=== PATIENT | female | born 1965 | race Caucasian/White ===

== ENCOUNTER 2016-07-01 06:40 | Day surgery (SDC) | payer BC ==
[~2016-07-01 06:40] MED LIST: ACETAMINOPHEN 500 MG TABLET PO PRN; HYDROmorphone HCL 2 MG/ML VIAL IV PRN; MAG HYDROX/ALUMINUM HYD/SIMETH 30 ML UDC PO PRN; MAGNESIUM HYDROXIDE 30 ML UDC PO PRN; ONDANSETRON HCL/PF 2 MG/ML VIAL IV PRN; PROMETHAZINE HCL 25 MG in DEXTROSE 5 % IN WATER 50 ML IV PRN; RINGERS SOLUTION,LACTATED 1,000 ML IV PRN; ZOLPIDEM TARTRATE 5 MG TABLET PO PRN; ceFAZolin SODIUM 1 GM VIAL IV PRN; diphenhydrAMINE HCL 50 MG/ML VIAL IV PRN; oxyCODONE HCL/ACETAMINOPHEN 1 TAB TABLET PO PRN
[2016-07-01] MEDS ORDERED: RINGERS SOLUTION,LACTATED 1,000 ML IV ONE ×2 (07:17→08:45)
--- NOTE | 2016-07-01 09:50 | OR ---
Operative Report - Dictated Report Narrative: Date: 07/01/2016 Physician: Mukul Fitzgerald M.D. Plant Specialist: Casimiro Blake PA-C Preoperative diagnosis: Left Shoulder rotator cuff tear, biceps tendinopathy Postoperative diagnosis: Left Shoulder full-thickness supraspinatus rotator cuff tear, biceps tendinopathy, type I labral tear Procedure: Left shoulder arthroscopy with mini open rotator cuff repair, biceps tenodesis, labral debridement Anesthesia: General plus regional Complications: None Estimated blood loss: Minimal Specimens: None Retained implants: [employer] 4.5 mm peek helicoil anchor 3, footprint anchor 2 Drains: None Indications: Mrs. Rodriguez Is a 50 year-old female who has been followed in my clinic with complaints of shoulder pain consistent biceps and labral pain. Physical exam and diagnostic imaging were consistent with his complaints and concern for full- thickness rotator cuff tear and biceps tendinopathy. Conservative measures have failed including, but not limited to, passage of time, activity modification, medications, physical therapy/home exercise program, or injections. The risks, benefits, and alternatives were discussed in clinic. The risks being , bleeding, infection, blood clots, nerve, tendon, ligament , blood vessel injury, persistent pain, arthrosis, stiffness, need for prolonged therapy, need for additional procedures, and persistent symptoms. Consent was obtained in the clinic. Procedure: After marking the correct extremity in the preoperative holding area, a timeout was performed in the operating room. IV antibiotics consisting of Ancef were administered prior to the procedure. A general followed by regional anesthetic was induced by the nurse business strategy manager. This was in the supine position, then the patient was transitioned to a beachchair position with all bony prominences well-padded, head in neutral, the nonoperative arm well supported, and the legs padded with SCDs in place. The operative shoulder was then prepped and draped in a standard sterile fashion. Preoperatively the shoulder had full passive range of motion, and no gross instability. After marking out the bony landmarks , saline was infused into the joint through a posterior lateral portal site. A oziel incision was made, and the blunt trocar and cannula was introduced into the shoulder joint. An accessory portal was placed in the rotator cuff interval using a spinal needle for guidance. Upon initial evaluation, the biceps tendon showed tendinopathy and the extra articular portion with notable synovitis. The middle glenohumeral ligament was cordlike but intact. Subscapularis tendon was intact. The glenoid showed, arthrosis. The humeral head articular surface showed no arthrosis. The anterior labrum was frayed but intact. The superior labrum was and unremarkable. The pouch was unremarkable. The posterior labrum was unremarkable. The supraspinatus tendon was torn from just behind the biceps to the infraspinatus full thickness without retraction. The infraspinatus tendon was intact. A tag stitch was placed and the biceps and a tenotomy was performed as it inserted onto the labrum. The remaining stump was debrided using shaver. The greater tuberosity was debrided using a shaver through a lateral accessory portal. The rotator cuff tendon was also debrided down to stable tissue. The shaver was also utilized in order to debride the anterior portion of the labrum down to a stable margin. Attention was then turned to the subacromial space. Subacromial bursectomy was performed utilizing the prior portals. The coracoacromial ligament was intact. The bursal side of the rotator cuff demonstrated a full-thickness tear as identified intra-articularly. The acromial arch was unremarkable. Based on the arthroscopic findings, as well as exam and radiographic findings, it was elected to proceed with a mini open rotator cuff repair. A longitudinal incision centered over the previously identified rotator cuff tear was made just off the edge of the acromion. This was approximately 5 centimeters in length. The deltoid fascia was split sharply in line with its fibers, and blunt dissection was carried through the deltoid muscle. Any remaining subacromial bursal tissue was debrided in order to expose the underlying rotator cuff tear. The rotator cuff tear appeared to be inverted T orientation. The tuberosity was debrided of its soft tissues producing a bleeding bed for the tendon to be secured to. Two 4.5 mm PEEK helicoil anchor was placed just off the articular surface of the humeral head. A series of horizontal mattress sutures were placed at the prepared edge of the rotator cuff. This allowed for a tension-free return of the tendon to the greater tuberosity. The sutures were then passed longitudinally into 2 4.5 mm PEEK footprint anchor. This was performed and a suture bridge technique. This gave good overall compression to the rotator cuff at the insertion site. The shoulders place a range of motion and had no lift off of the repair site as well as no crepitance or signs of impingement. Full passive range of motion was able to be obtained. Next we turned our attention to the biceps. The extra-articular bicipital groove was opened and the biceps tendon was mobilized out of the joint. The bicipital groove was roughened and a helicoil anchor was placed in the groove. The suture limbs were placed in a Krakw type stitch stabilizing the biceps locking this in place and was tied holding this in the normal [place] tension. The overall contour the biceps was normal. This is noted to be stable through a range of motion. Once it was felt that the rotator cuff was adequately repaired, the wounds were thoroughly irrigated. 0 Vicryl was utilized in order to repair the deltoid fascia. 3-0 Vicryl was placed in the subcutaneous tissue. The rotator cuff incision as well as the portal sites were closed with interrupted nylon. Dressings consisting of Xeroform, 4 x 4, ABD, soft roll, and tape were applied. All sponge, needle, blade, and instrument counts were correct prior to closing the wounds. The patient was awoken and transferred to the postanesthesia care unit in stable condition.
[2016-07-01 13:36] VITALS: BP 121/82
[2016-07-01] MEDS ORDERED: SENNOSIDES/DOCUSATE SODIUM 1 TAB TABLET PO SCH (21:00)
== END 2016-07-01 06:41 | disposition home or self-care (01) ==
LOC: AMB 06:40
PROVIDERS: ATTEND Orthopaedic Surgery
PROC: 0LQ20ZZ Repair Left Shoulder Tendon, Open Approach (ICD-10-PCS; 2016-07-01)
PROC: 0LS40ZZ Reposition Left Upper Arm Tendon, Open Approach (ICD-10-PCS; 2016-07-01)
PROC: 0RHK04Z Insertion of Internal Fixation Device into Left Shoulder Joint, Open Approach (ICD-10-PCS; 2016-07-01)
PROC: 0RBK4ZZ Excision of Left Shoulder Joint, Percutaneous Endoscopic Approach (ICD-10-PCS; principal; 2016-07-01 08:00)
DX: M75.102 Unspecified rotator cuff tear or rupture of left shoulder, not specified as traumatic (principal); M65.812 Other synovitis and tenosynovitis, left shoulder; S43.492A Other sprain of left shoulder joint, initial encounter; I10 Essential (primary) hypertension; K21.9 Gastro-esophageal reflux disease without esophagitis; F17.200 Nicotine dependence, unspecified, uncomplicated; Z68.36 Body mass index [BMI] 36.0-36.9, adult